=== PATIENT | female | born 1990 | race Caucasian/White ===

== ENCOUNTER → 2018-04-08 15:54 | Outpatient (CLI) | payer MEDICAID, SELFPAY ==
[2018-04-08 18:02] LABS: Cholesterol 166 mg/dL (200); High Density Lipoprotein 51 mg/dL; Triglycerides 109 mg/dL; Very Low Density Lipoprotein 22 mg/dL (5-40)
[2018-04-12 14:16] LABS: Lipoprotein A 121 nmol/L (<75)
== END ==
PROVIDERS: Family Provider Family Medicine; PCP Family Medicine; Visit Provider Family Medicine
DX: Z00.00 Encounter for general adult medical examination without abnormal findings (principal); Z82.49 Family history of ischemic heart disease and other diseases of the circulatory system; Z13.220 Encounter for screening for lipoid disorders
CPT/HCPCS: 36415; 80061; 83695

== ENCOUNTER → 2019-10-14 11:38 | Outpatient (CLI) | payer OTHER, MEDICAID, SELFPAY ==
[2018-04-30 08:54] VITALS: BMI 21.6
[2019-10-14 15:17] LABS: Absolute Lymphocyte Count 3.29 X10^3/uL (0.83-4.51); Absolute Neutrophil Count 7.1 X10^3/uL (2.0-7.7); Basophil# 0.09 X10^3/uL; Basophil% 0.8 % (0-1); Eosinophil# 0.27 X10^3/uL; Eosinophils% 2.4 % (0-5); Hemoglobin 13.2 g/dL (12.0-15.0); Lymphocyte # 3.29 X10^3/ul (4.0); Lymphocyte % 29.3 % (19-41); Mean Corp Hgb Conc 32.2 g/dL (32-36); Mean Corpuscular Hgb 31.5 pg (27.0-32.0); Mean Corpuscular Volume 97.9 fL (81-99); Mean Platelet Vol. 10.8 fl (6.2-12.0); Monocyte# 0.48 X10^3/uL; Monocyte% 4.3 % (0-10); NRBC Flagged by Analyzer 0 % (0-5); Neutrophil # 7.05 X10^3/uL (2.7-7.7); Neutrophil % 62.9 % (47-70); Platelet Count 314 K/mm3 (150-450); RBC Distribution Width CV 12.6 % (11.6-14.6); Red Blood Count 4.19 M/mm3 (4.2-5.4); White Blood Count 11.2 K/mm3 (4.4-11.0)
[2019-10-14 15:26] LABS: International Normalized Ratio 1.1; Partial Thromboplast Time 30.8 Seconds (24.1-36.2); Prothrombin Time (Protime)PT. 13.6 SECONDS (11.7-14.9)
[2019-10-14 16:13] LABS: ALB/GLOB Ratio 1.3 RATIO (0.9-2.4); AST(SGOT) 10 U/L (15-37); Alanine Aminotransfer ALT/SGPT 23 U/L (13-56); Albumin, Serum 3.9 g/dL (3.2-5.0); Alkaline Phosphatase 87 U/L (45-117); Anion Gap 6 (5-15); BUN 6 mg/dL (7-18); BUN/Creat Ratio 9.3 RATIO (10-20); Calcium,Total 8.8 mg/dL (8.5-10.1); Chloride 106 mmol/L (98-107); Cholesterol 206 mg/dL (200); Creatinine, Serum 0.65 mg/dL (0.55-1.02); EST Glomerular Filtration Rate 116 mL/min (>60); Est Glom Filt Rate - Afr Amer 140 mL/min (>60); Globulin 2.9 g/dL (2.2-4.2); Glucose 92 mg/dL (74-106); High Density Lipoprotein 51 mg/dL; Potassium 3.6 mmol/L (3.5-5.1); Protein, Total 6.8 g/dL (6.4-8.2); Sodium Level 139 mmol/L (136-145); Triglycerides 141 mg/dL; Very Low Density Lipoprotein 28 mg/dL (5-40)
[2019-10-17 11:33] LABS: CRP, High Sensitivity Cardiac < 2.90 mg/L
[2019-10-17 16:23] LABS: Lipoprotein A 105.6 nmol/L (<75.0)
== END ==
PROVIDERS: PCP Family Medicine; Visit Provider Family Medicine
DX: Z00.00 Encounter for general adult medical examination without abnormal findings (principal); E78.41 Elevated Lipoprotein(a); T14.8XXA Other injury of unspecified body region, initial encounter; Z82.49 Family history of ischemic heart disease and other diseases of the circulatory system
CPT/HCPCS: 36415; 80053; 80061; 83695; 85025; 85610; 85730; 86140; 86141

== ENCOUNTER → 2022-01-30 | Outpatient (CLI) | payer OTHER, MEDICAID, SELFPAY ==
[2022-01-30 18:38] LABS: Cholesterol 263 mg/dL (200); High Density Lipoprotein 55 mg/dL; Triglycerides 132 mg/dL; Very Low Density Lipoprotein 26 mg/dL (5-40)
== END | disposition home or self-care (01) ==
PROVIDERS: PCP Family Medicine; Visit Provider Family Medicine
DX: E78.41 Elevated Lipoprotein(a) (principal)
CPT/HCPCS: 36415; 80061

== ENCOUNTER → 2022-02-06 | Outpatient (CLI) | payer OTHER, MEDICAID, SELFPAY ==
[2022-02-06 12:31] LABS: Cholesterol 264 mg/dL (200); High Density Lipoprotein 54 mg/dL; Triglycerides 93 mg/dL; Very Low Density Lipoprotein 19 mg/dL (5-40)
== END | disposition home or self-care (01) ==
LOC: BFHLAB 09:56
PROVIDERS: PCP Family Medicine; Visit Provider Family Medicine
DX: E78.5 Hyperlipidemia, unspecified (principal)
CPT/HCPCS: 36415; 80061

== ENCOUNTER → 2022-03-31 | Outpatient (CLI) | payer OTHER, MEDICAID, SELFPAY ==
[2022-03-31 18:39] LABS: AST(SGOT) 18 U/L (15-37); Alanine Aminotransfer ALT/SGPT 40 U/L (13-56); Albumin, Serum 3.9 g/dL (3.2-5.0); Alkaline Phosphatase 71 U/L (45-117); Bilirubin, Direct 0.11 mg/dL (0.00-0.30); Cholesterol 156 mg/dL (200); Globulin 2.9 g/dL (2.2-4.2); High Density Lipoprotein 61 mg/dL; Protein, Total 6.8 g/dL (6.4-8.2); Triglycerides 106 mg/dL; Very Low Density Lipoprotein 21 mg/dL (5-40)
== END | disposition home or self-care (01) ==
LOC: BFHLAB 14:53
PROVIDERS: PCP Family Medicine; Visit Provider Family Medicine
DX: E78.5 Hyperlipidemia, unspecified (principal); Z51.81 Encounter for therapeutic drug level monitoring
CPT/HCPCS: 36415; 80061; 80076

== ENCOUNTER → 2022-09-08 | Outpatient (CLI) | payer MEDICAID, SELFPAY ==
[2022-09-08 18:07] LABS: Absolute Lymphocyte Count 3.74 X10^3/uL (0.83-4.51); Absolute Neutrophil Count 5.9 X10^3/uL (2.0-7.7); Basophil% 0.9 % (0-1); Eosinophil# 0.25 X10^3/uL; Eosinophils% 2.3 % (0-5); Hematocrit 40.1 % (37-47); Hemoglobin 13.4 g/dL (12.0-15.0); Lymphocyte # 3.74 X10^3/ul (0.83-4.51); Lymphocyte % 35.1 % (19-41); Mean Corp Hgb Conc 33.4 g/dL (32-36); Mean Corpuscular Hgb 32.1 pg (27.0-32.0); Mean Corpuscular Volume 96.2 fL (81-99); Mean Platelet Vol. 11.4 fl (6.2-12.0); Monocyte# 0.59 X10^3/uL; Monocyte% 5.5 % (0-10); NRBC Flagged by Analyzer 0 % (0-5); Neutrophil # 5.93 X10^3/uL (2.7-7.7); Neutrophil % 55.8 % (47-70); Platelet Count 273 K/mm3 (150-450); RBC Distribution Width CV 12.6 % (11.6-14.6); RBC Distribution Width SD 44.6 fl (35.1-43.9); Red Blood Count 4.17 M/mm3 (4.2-5.4); White Blood Count 10.7 K/mm3 (4.4-11.0)
[2022-09-08 18:25] LABS: Erythrocyte Sedimentation Rate 2 mm/hr (0-30)
[2022-09-08 19:03] LABS: ALB/GLOB Ratio 1.3 RATIO (0.9-2.4); AST(SGOT) 18 U/L (15-37); Alanine Aminotransfer ALT/SGPT 31 U/L (13-56); Albumin, Serum 3.7 g/dL (3.2-5.0); Alkaline Phosphatase 86 U/L (45-117); Anion Gap 6 (5-15); BUN 8 mg/dL (7-18); BUN/Creat Ratio 10.2 RATIO (10-20); CRP < 2.90 mg/L (0.0-3.0); Calcium,Total 9.2 mg/dL (8.5-10.1); Chloride 108 mmol/L (98-107); Creatinine, Serum 0.79 mg/dL (0.55-1.02); EST Glomerular Filtration Rate 90 mL/min (>60); Est Glom Filt Rate - Afr Amer 109 mL/min (>60); Globulin 2.9 g/dL (2.2-4.2); Glucose 81 mg/dL (74-106); Potassium 3.9 mmol/L (3.5-5.1); Protein, Total 6.6 g/dL (6.4-8.2); Sodium Level 139 mmol/L (136-145)
== END | disposition home or self-care (01) ==
LOC: BFHLAB 16:22
PROVIDERS: PCP Family Medicine; Referring Provider Family Medicine; Visit Provider Family Medicine
DX: K52.9 Noninfective gastroenteritis and colitis, unspecified (principal)
CPT/HCPCS: 36415; 80053; 85025; 85652; 86140

== ENCOUNTER 2023-01-09 07:25 | Day surgery (SDC) | payer MEDICAID, SELFPAY ==
--- NOTE | 2023-01-09 | COLBX_PTH ---
PATIENT: DOMINGA CROWELL LOC: EN U#:[id number] AGE/SX: 32/F ROOM: RE01/09/[address]: Dr. Laz Arellano MD : 1990 BED: DIS: 01/09/2023 SPEC #: [id number] RECD: 01/09/23 13:47 STATUS: ZARINA REEduarda #: [id number] JESSENIA: 01/09/23 00:[address]: Laz Arellano DEPT: SURGICAL PATHOLOGY RECD BY: Yinka Wallace ENTERED: 01/09/23 13:48 SP TYPE: COLON BX OTHR DR: Dr. Mariusz Winslow DO Tissues: COLON BIOPSY Procedures: Surgery Specimen Level IV HEADER OPERATION: Colonoscopy and biopsies PRE-OP DIAGNOSIS: Diarrhea TISSUE SUBMITTED: Random colonic biopsies for microscopic colitis MICROSCOPIC DIAGNOSIS Colon, random biopsy: No pathologic change. AM:bibiana 01/13/2023 MICROSCOPIC DESCRIPTION Slides are reviewed. GROSS DESCRIPTION Received in fixative is one container labeled with the patient's name and designated random colonic biopsy. The specimen consists of multiple irregular fragments of light rothman soft tissue that in aggregate measure 2.0 x 1.0 x 0.1 cm. The specimen is totally submitted in one cassette. / SJ:bibiana 01/09/2023 TC:5 CPT: 95695
[2023-01-09 07:45] VITALS: BP 109/48; PULSE 65; RESP 16; TEMP 36.6; O2SAT 97; BMI 24.3
[2023-01-09] MEDS: Lactated Ringers 1,000 ML 15 ML IV (08:00)
--- NOTE | 2023-01-09 08:12 | PCM.HP.BLA ---
History and Physical Date of Admission: 01/09/23 Intake Vital Signs 12/17/2313:44 Height 5 ft 3 in Weight: 136 lb 8 oz BMI 24.1 BP 111/75 Blood Pressure Location Rt brachial Position Sitting Respiration 16 Pulse 72 Pulse Source NIBP Temp 97.6 F L Temp Source Temporal Pulse Oximetry (%) 97 Oxygen Delivery Method room air Intake Visit Reasons: CHANGES IN BOWEL HABITS Chief Complaint: change in bowel habits Track Leader Required: No Is patient in pain?: No Allergies No Known Allergies Allergy (Verified 12/17/22 14:44) Medications vaicrxxmrt-wplhtlywdbdbg-pxpeoubk 50 mg-325 mg-40 mg tablet 1 tab PO Q4H PRN PRN Headache 10/25/19 [History Confirmed 12/17/22] fluoxetine 20 mg capsule 20 mg PO DAILY 10/25/19 [History Confirmed 12/17/22] sumatriptan succinate 100 mg tablet 100 mg PO PRN PRN Headache 10/25/19 [History Confirmed 12/17/22] rosuvastatin 10 mg tablet mg PO 12/17/22 [History Confirmed 12/17/22] vitamin E (dl, acetate) 180 mg (400 unit) capsule 180 mg PO DAILY 12/17/22 [History Confirmed 12/17/22] Is last menstrual period known: No Post menopausal: No Patient : No PFSH Medical History Anxiety and depression Bilateral knee pain Elevated lipoprotein(a) Migraines Severe headache Surgical History History of History of hysterectomy History of tubal ligation Family History Grandmother Pancreatic cancerOther Blood clots Heart disease High cholesterol Hypertension Myocardial infarction Social History (Updated 04/30/18 @ 16:34 by AARON Britt) Smoking Status: Light Smoker (<10/day) alcohol intake: current HPI HPI HPI: Patient is a 32-year-old female here for diarrhea. The patient reports that a few weeks ago she was having bright red blood in her stool but this resolved. She said now she has been having no blood but she is only having liquid stool. She does not describe any abdominal pain. She does not have normal bowel movements. She does not describe that they are loose but more like pure liquid. ROS General General: No weight change, appetite, fatigue, colon cancer, breast cancer or weakness HEENT HEENT: No difficulty swallowing, eye injury, eye surgery, swollen glands or hoarseness Endo Endocrine: No thyroid disease, diabetes mellitus, thyroid cancer, Hair loss, heat intolerance or cold intolerance Musc Musculoskeletal: No back problems, arthritis, rheumatoid arthritis, gout or joint pain Cardio Cardiovascular: No murmur, pacemaker, heart disease, atrial fibrillation, high blood pressure, heart attack, heart stent, palpitations, shortness of breat with exertion or chest pain Psych Psychiatric: Yes depression and anxiety; No hearing voices Resp Respiratory: No shortness of breath, No sleep apnea, No cough, No COPD, No asthma, No emphysema and No wheezing Gastro Gastrointestinal: No abdominal pain, No nausea or vomiting, Yes diarrhea, No constipation, Yes blood in stool, No acid reflux, No hemorrhoids, No ulcers, No gallbladder problem and No black,tarry stools Claudy Hematologic: No blood thinners, No blood disorders, No bleeding, No anemia and No blood clots Neuro Neurologic: No weakness Exam Const General: cooperative Orientation: alert and oriented x3 HENMT Head: normal to inspection Neck Neck: normal visual inspection and full ROM Chest Chest palpation & inspection: normal inspection of the chest Resp Effort & Inspection: normal respiratory effort Auscultation: clear to auscultation bilaterally Cardio Rate: regular rate Rhythm: regular rhythm GI Inspection: non-distended Palpation: soft and nontender Skin General: no rashes or lesions noted Neuro General: patient alert and patient oriented x3 Extrem General: full ROM Psych Appearance: grossly normal Mental Status: mental status grossly normal Assessment and Plan Assessment and Plan (1) Diarrhea: Status: Acute Qualifiers: Diarrhea type: unspecified type Qualified Code(s): R19.7 - Diarrhea, unspecified Plan: The patient has been having diarrhea for a few weeks. I will first send her for stool study and then I will perform colonoscopy to take random biopsies to check for colitis. I explained endoscopy in detail to the patient. I explained the risks including but not limited to stroke or heart attack with anesthesia, perforation of the GI tract, bleeding, infection. I explained that any of these could necessitate further emergency surgery. The patient understands and all questions were answered sufficiently. The patient wishes to proceed with procedure. Laz Arellano MD Pager: [facility] [address] [place] [address], [address] [place] [address] Office: I have examined the patient and the H&P has been reviewed. There are no clinical changes since date of exam.
--- NOTE | 2023-01-09 09:01 | OP.CCLET_ITS ---
01/09/2023 Mariusz Winslow [address] [place] [address] Re : Colonoscopy procedure for Fartun Bowman Dear Dr. Winslow This procedure was performed on Monday, January 09, 2023. My impressions and recommendations are as follows: Impressions : - The entire examined colon is normal on direct and retroflexion views. - Biopsies were taken with a cold forceps from the entire colon for evaluation of microscopic colitis. Recommendations : - Discharge patient to home. - Resume previous diet. - Continue present medications. - Await pathology results. - Repeat colonoscopy at age 46 for screening purposes. My findings are described in the full procedure note, which is enclosed. If I can be of further assistance, please feel free to contact me at Doctor phone number(s): , Work: . Sincerely, Laz Arellano MD 01/09/2023 9:01:04 AM This report has been signed electronically.
--- NOTE | 2023-01-09 09:01 | OP.COLON_ITS ---
Patient Name: Fartun Bowman Procedure Date: 01/09/2023 8:36 AM Date of : 1990 Age: 32 Procedure: Colonoscopy Indications: Chronic diarrhea Providers: Laz Arellano MD Medicines: Monitored Anesthesia Care Patient Profile: This is a 32 year old female. Refer to note in patient chart for documentation of history and physical. Last Colonoscopy: none. The patient's first colonoscopy is today. Complications: No immediate complications. Estimated blood loss: Minimal. Procedure: Pre-Anesthesia Assessment: - Prior to the procedure, a History and Physical was performed, and patient medications and allergies were reviewed. The patient's tolerance of previous anesthesia was also reviewed. The risks and benefits of the procedure and the sedation options and risks were discussed with the patient. All questions were answered, and informed consent was obtained. Prior Anticoagulants: The patient has taken no anticoagulant or antiplatelet agents. After reviewing the risks and benefits, the patient was deemed in satisfactory condition to undergo the procedure. After I obtained informed consent, the scope was passed under direct vision. Throughout the procedure, the patient's blood pressure, pulse, and oxygen saturations were monitored continuously. The pediatric colonoscope was introduced through the anus and advanced to the cecum, identified by appendiceal orifice and ileocecal valve. The colonoscopy was performed without difficulty. The patient tolerated the procedure well. The quality of the bowel preparation was good. The ileocecal valve, appendiceal orifice, and rectum were photographed. Scope In: 8:41:51 AM Scope Withdrawal Time 0 hours 4 minutes 32 seconds Scope Out: 8:52:39 AM Total Procedure Duration Time 0 hours 10 minutes 48 seconds Findings: The entire examined colon appeared normal on direct and retroflexion views. Biopsies for histology were taken with a cold forceps from the entire colon for evaluation of microscopic colitis. Impression: - The entire examined colon is normal on direct and retroflexion views. - Biopsies were taken with a cold forceps from the entire colon for evaluation of microscopic colitis. Recommendation: - Discharge patient to home. - Resume previous diet. - Continue present medications. - Await pathology results. - Repeat colonoscopy at age 46 for screening purposes. Procedure Code(s): --- Professional --- 36301, Colonoscopy, flexible; with biopsy, single or multiple Diagnosis Code(s): --- Professional --- K52.9, Noninfective gastroenteritis and colitis, unspecified CPT copyright 2021 [employer]. All rights reserved. The codes documented in this report are preliminary and upon loading rack supervisor review may be revised to meet current compliance requirements. Laz Arellano MD 01/09/2023 9:01:04 AM This report has been signed electronically. Number of Addenda: 0 Note Initiated On: 01/09/2023 8:36 AM
[2023-01-09 09:03] VITALS: BP 103/58; BP 109/48; PULSE 65; RESP 18; TEMP 36.4; O2SAT 100
[2023-01-09 09:05] VITALS: BP 102/64; BP 109/48; PULSE 66; RESP 12; O2SAT 100
[2023-01-09 09:09] VITALS: BP 100/62; BP 109/48; PULSE 58; RESP 12; O2SAT 100
[2023-01-09 09:11] VITALS: BP 101/66; BP 109/48; PULSE 68; RESP 12; TEMP 37.2
[2023-01-09 09:28] VITALS: BP 109/48
== END 2023-01-09 09:35 | disposition home or self-care (01) ==
LOC: EN 07:25 → AC 07:27
PROVIDERS: PCP Family Medicine; Referring Provider Family Medicine; Visit Provider Surgery
PROC: 0DJD8ZZ Inspection of Lower Intestinal Tract, Via Natural or Artificial Opening Endoscopic (ICD-10-PCS; CPT 45378; principal; 2023-01-09 08:25)
DX: K52.9 Noninfective gastroenteritis and colitis, unspecified (principal); F17.200 Nicotine dependence, unspecified, uncomplicated; F41.9 Anxiety disorder, unspecified; F32.A Depression, unspecified; E78.00 Pure hypercholesterolemia, unspecified; Z79.899 Other long term (current) drug therapy
CPT/HCPCS: 45380; 88305; J7120; J2405

== ENCOUNTER → 2023-02-05 | Outpatient (CLI) | payer MEDICAID, SELFPAY ==
[2023-02-05 17:38] LABS: Color, Urine Yellow (Yellow); Glucose, Dipstick Normal (Normal); Ketone-Dipstick Negative (Negative); Leukocyte Esterase-Dipstick Negative /ul (Negative); Nitrite-Dipstick Negative (Negative); Occult Blood-Urine Negative /ul (Negative); Protein-Dipstick Negative (Negative); Specific Gravity, Urine 1.015 (1.002-1.030); Urine Bilirubin Dipstick Negative (Negative); Urine Clarity Clear (Clear); Urine Urobilinogen Normal (Normal)
[2023-02-05 17:39] LABS: Absolute Lymphocyte Count 2.86 X10^3/uL (0.83-4.51); Absolute Neutrophil Count 6.2 X10^3/uL (2.0-7.7); Basophil# 0.09 X10^3/uL; Basophil% 0.9 % (0-1); Eosinophil# 0.26 X10^3/uL; Eosinophils% 2.6 % (0-5); Hematocrit 43.3 % (37-47); Hemoglobin 14.2 g/dL (12.0-15.0); Lymphocyte # 2.86 X10^3/ul (0.83-4.51); Lymphocyte % 28.8 % (19-41); Mean Corp Hgb Conc 32.8 g/dL (32-36); Mean Corpuscular Volume 94.5 fL (81-99); Mean Platelet Vol. 10.7 fl (6.2-12.0); Monocyte# 0.45 X10^3/uL; Monocyte% 4.5 % (0-10); NRBC Flagged by Analyzer 0 % (0-5); Neutrophil # 6.23 X10^3/uL (2.7-7.7); Neutrophil % 62.8 % (47-70); Platelet Count 303 K/mm3 (150-450); RBC Distribution Width CV 12.4 % (11.6-14.6); RBC Distribution Width SD 43.1 fl (35.1-43.9); Red Blood Count 4.58 M/mm3 (4.2-5.4); White Blood Count 9.9 K/mm3 (4.4-11.0)
[2023-02-05 18:15] LABS: ALB/GLOB Ratio 1.3 RATIO (0.9-2.4); AST(SGOT) 15 U/L (15-37); Alanine Aminotransfer ALT/SGPT 25 U/L (13-56); Alkaline Phosphatase 85 U/L (45-117); Anion Gap 5 (5-15); BUN 8 mg/dL (7-18); BUN/Creat Ratio 11.5 RATIO (10-20); Calcium,Total 8.9 mg/dL (8.5-10.1); Chloride 106 mmol/L (98-107); EST Glomerular Filtration Rate 104 mL/min (>60); Est Glom Filt Rate - Afr Amer 126 mL/min (>60); Glucose 84 mg/dL (74-106); Potassium 3.8 mmol/L (3.5-5.1); Sodium Level 137 mmol/L (136-145)
== END | disposition home or self-care (01) ==
LOC: BFHLAB 16:06
PROVIDERS: PCP Family Medicine; Visit Provider Family Medicine
DX: R10.11 Right upper quadrant pain (principal); R35.0 Frequency of micturition
CPT/HCPCS: 36415; 80053; 81002; 85025

== ENCOUNTER → 2023-03-10 | Outpatient (CLI) | payer MEDICAID, SELFPAY ==
[2023-03-10 11:46] LABS: ALB/GLOB Ratio 1.3 RATIO (0.9-2.4); AST(SGOT) 23 U/L (15-37); Alanine Aminotransfer ALT/SGPT 37 U/L (13-56); Albumin, Serum 3.9 g/dL (3.2-5.0); Alkaline Phosphatase 89 U/L (45-117); Anion Gap 3 (5-15); BUN 9 mg/dL (7-18); BUN/Creat Ratio 10.8 RATIO (10-20); Calcium,Total 9.5 mg/dL (8.5-10.1); Chloride 109 mmol/L (98-107); Creatinine, Serum 0.83 mg/dL (0.55-1.02); EST Glomerular Filtration Rate 85 mL/min (>60); Est Glom Filt Rate - Afr Amer 103 mL/min (>60); Globulin 3.1 g/dL (2.2-4.2); Glucose 97 mg/dL (74-106); Potassium 4.1 mmol/L (3.5-5.1); Sodium Level 139 mmol/L (136-145); Thyroid Stim Hormone (TSH) 1.58 uIU/mL (0.358-3.74)
== END | disposition home or self-care (01) ==
LOC: LAB 10:05
PROVIDERS: PCP Family Medicine; Referring Provider Internal Medicine Cardiovascular Disease; Visit Provider Internal Medicine Cardiovascular Disease
DX: R00.2 Palpitations (principal); R00.0 Tachycardia, unspecified
CPT/HCPCS: 36415; 80053; 84443

== ENCOUNTER → 2023-04-01 | Outpatient (CLI) | payer MEDICAID, SELFPAY ==
--- NOTE | 2023-04-01 08:05 | ECHOD_ITS ---
Reason For Study: PALPITATIONS Procedure This was a 2D Doppler, Color Flow transthoracic echocardiogram. Exam performed in department. Left Ventricle Normal LV size. Left ventricular systolic function is normal. The estimated ejection fraction is 60 %. Normal diastololic function. Right Ventricle Normal RV size. Normal systolic function. Atria The left and right atria are normal. Mitral Valve The mitral valve is structurally normal. No prolapse or stenosis seen. Trivial mitral valve insufficiency. Tricuspid Valve Normal tricuspid valve. Trivial tricuspid valve insufficiency. Right ventricular systolic pressure estimated to be 23 mmHg. Aortic Valve The aortic valve is not well visualized in the short axis view. There is no aortic stenosis. No aortic valve insufficiency. Pulmonic Valve Normal pulmonic valve. Trivial pulmonic valve insufficiency. Great Vessels Normal aortic root. Pericardium/Pleural No pericardial effusion. MMode/2D Measurements & Calculations LVIDd: 5.0 cm IVSd: 0.73 cm Ao root diam: 2.6 cm LVIDs: 3.2 cm LVPWd: 0.78 cm RVDd: 3.3 cm FS: 34.7 % LAV(MOD-bp): 30.5 ml LVAd ap4: 24.9 cm2 SV(MOD-sp4): 40.9 ml LAV(MOD-bp) Indexed: 18.3 ml/m2 LVLd ap4: 6.5 cm LAV(MOD-sp2): 28.8 ml EDV(MOD-sp4): 79.5 ml LAV(MOD-sp4): 30.9 ml EDV(sp4-el): 81.0 ml LVAs ap4: 15.4 cm2 LVLs ap4: 5.2 cm ESV(MOD-sp4): 38.6 ml ESV(sp4-el): 39.1 ml EF(MOD-sp4): 51.4 % EF(sp4-el): 51.7 % SV(sp4-el): 41.9 ml LA A4 area: 13.1 cm2 LA dimension(2D): 3.4 cm RA A4 area: 12.9 cm2 TAPSE: 2.2 cm Time Measurements MV dec time: 0.14 sec Doppler Measurements & Calculations MV E max eloy: 86.7 cm/sec Lat Peak E' Eloy: 14.9 cm/sec Med Peak E' Eloy: 12.8 cm/sec MV A max eloy: 51.6 cm/sec E/E' lat: 5.8 E/E' med: 6.8 MV E/A: 1.7 MV V2 max: 115.9 cm/sec MV P1/2t max eloy: 118.2 cm/sec Ao V2 max: 125.2 cm/sec MV max P.4 mmHg MV P1/2t: 54.2 msec Ao max P.3 mmHg MV V2 mean: 55.2 cm/sec Ao V2 mean: 88.6 cm/sec MV mean P.5 mmHg MV dec slope: 638.4 cm/sec2 Ao mean P.6 mmHg MV V2 VTI: 23.0 cm MVA(P1/2t): 4.1 cm2 Ao V2 VTI: 27.1 cm AV (velocity ratio): 0.77 LV V1 max: 99.0 cm/sec PA V2 max: 88.1 cm/sec TR max eloy: 222.5 cm/sec LV V1 max P.9 mmHg PA V2 mean: 65.0 cm/sec TR max P.8 mmHg LV V1 mean P.3 mmHg LV V1 mean: 73.1 cm/sec LV V1 VTI: 21.0 cm ECHO/Echo Complete Interpretation Summary The estimated ejection fraction is 60 %. Normal diastololic function. Ordering Physician: Myranda Omalley Referring Physician: Mariusz Winslow Performed By: Kasia Henry RDCS, RVT
== END | disposition home or self-care (01) ==
LOC: CVS 08:03
PROVIDERS: PCP Family Medicine; Referring Provider Internal Medicine Cardiovascular Disease; Visit Provider Internal Medicine Cardiovascular Disease
DX: R00.2 Palpitations (principal); R00.0 Tachycardia, unspecified
CPT/HCPCS: 93306

== ENCOUNTER → 2023-07-08 | Outpatient (CLI) | payer MEDICAID, SELFPAY ==
[2023-07-08 14:04] LABS: Estradiol 78.3 pg/mL; Follicle Stimulating Hormone 3.1 mIU/mL; Thyroid Stim Hormone (TSH) 1.02 uIU/mL (0.358-3.74)
[2023-07-09 04:07] LABS: PROGESTERONE 16.5 ng/mL (.)
== END | disposition home or self-care (01) ==
LOC: BFHLAB 08:46
PROVIDERS: PCP Family Medicine; Referring Provider Family Medicine; Visit Provider Family Medicine
DX: E34.9 Endocrine disorder, unspecified (principal); R23.2 Flushing; R61 Generalized hyperhidrosis
CPT/HCPCS: 36415; 82627; 82670; 83001; 83002; 84144; 84403; 84443; 82626

== ENCOUNTER → 2023-11-13 | Outpatient (CLI) | payer MEDICAID, SELFPAY ==
[2023-11-13 15:27] LABS: Absolute Lymphocyte Count 3.33 X10^3/uL (0.83-4.51); Absolute Neutrophil Count 8.8 X10^3/uL (2.0-7.7); Basophil# 0.08 X10^3/uL; Basophil% 0.6 % (0-1); Eosinophil# 0.15 X10^3/uL; Eosinophils% 1.2 % (0-5); Hematocrit 43.4 % (37-47); Hemoglobin 14.3 g/dL (12.0-15.0); Lymphocyte # 3.33 X10^3/ul (0.83-4.51); Lymphocyte % 25.7 % (19-41); Mean Corp Hgb Conc 32.9 g/dL (32-36); Mean Corpuscular Hgb 31.2 pg (27.0-32.0); Mean Corpuscular Volume 94.8 fL (81-99); Mean Platelet Vol. 10.8 fl (6.2-12.0); Monocyte# 0.51 X10^3/uL; Monocyte% 3.9 % (0-10); NRBC Flagged by Analyzer 0 % (0-5); Neutrophil # 8.83 X10^3/uL (2.7-7.7); Neutrophil % 68.1 % (47-70); Platelet Count 307 K/mm3 (150-450); RBC Distribution Width CV 13.1 % (11.6-14.6); RBC Distribution Width SD 45.5 fl (35.1-43.9); Red Blood Count 4.58 M/mm3 (4.2-5.4)
[2023-11-13 16:20] LABS: ALB/GLOB Ratio 1.2 RATIO (0.9-2.4); AST(SGOT) 7 U/L (15-37); Alanine Aminotransfer ALT/SGPT 15 U/L (13-56); Albumin, Serum 3.8 g/dL (3.2-5.0); Alkaline Phosphatase 90 U/L (45-117); Anion Gap 5 (5-15); BUN 11 mg/dL (7-18); BUN/Creat Ratio 15.3 RATIO (10-20); Calcium,Total 9.2 mg/dL (8.5-10.1); Chloride 104 mmol/L (98-107); Creatinine, Serum 0.72 mg/dL (0.55-1.02); EST Glomerular Filtration Rate 100 mL/min (>60); Est Glom Filt Rate - Afr Amer 120 mL/min (>60); Globulin 3.2 g/dL (2.2-4.2); Glucose 100 mg/dL (74-106); Lipase 27 U/L (13-75); Potassium 4.3 mmol/L (3.5-5.1); Sodium Level 134 mmol/L (136-145)
== END | disposition home or self-care (01) ==
LOC: BFHLAB 13:49
PROVIDERS: PCP Family Medicine; Referring Provider Family Medicine; Visit Provider Family Medicine
DX: R10.11 Right upper quadrant pain (principal)
CPT/HCPCS: 36415; 80053; 83690; 85025

== ENCOUNTER → 2023-11-26 | Outpatient (CLI) | payer MEDICAID, SELFPAY ==
--- NOTE | 2023-11-26 09:20 | US_ITS ---
STUDY: ABDOMINAL ULTRASOUND - RIGHT UPPER QUADRANT REASON FOR VISIT: Female, 33 years old PAIN/POST-PRANDIAL TECHNIQUE: Ultrasound evaluation of the right upper quadrant was performed with real-time and static nelson-scale imaging. TECHNICAL QUALITY: Adequate. COMPARISON: None. FINDINGS: Liver: The liver measures 16.6 cm. There is normal echogenicity of the liver. The bile ducts are within normal limits. There is hepatic color flow. The direction of portal flow is hepatopetal. There is no demonstrated mass lesion. Gallbladder: Normal distended gallbladder. The gallbladder wall measures 1.5 mm. There is a negative sonographic Conn''s sign. There is no pericholecystic fluid. There are no gallstones. Multiple small polyps are seen adherent to the gallbladder wall. The largest measures 4 mm x 4 mm x 3 mm. Sludge is seen within the gallbladder lumen. Common Bile Duct (C.B.D.): The common bile duct measures 2.9 mm. Pancreas: Normal size of the head, body and tail of the pancreas. There is normal echogenicity of the pancreas. There is no demonstrated pancreatic mass or cyst. Right Kidney: Normal size of the right kidney. The right kidney measures 10.8 cm x 5.4 cm x 5 cm. Normal renal cortex. The right cortex measures 1 cm. There is no demonstrated renal mass or cyst. There is no right hydronephrosis. US/Abdomen Limited IMPRESSION: Small gallbladder polyps. Sludge is seen within the gallbladder lumen. Electronically Signed: West Burns MD at 11:15 EDT ,
== END | disposition home or self-care (01) ==
LOC: US 09:17
PROVIDERS: PCP Family Medicine; Referring Provider Family Medicine; Visit Provider Family Medicine
DX: R10.11 Right upper quadrant pain (principal)
CPT/HCPCS: 76705

== ENCOUNTER 2024-01-12 09:57 | Day surgery (SDC) | payer OTHER, SELFPAY ==
[2024-01-12] VITALS (12 sets, daily range): BP systolic 95–135; BP diastolic 53–83; PULSE 68–93; RESP 16; TEMP 36.1–36.9; O2SAT 94–100; BMI 21.5
--- NOTE | 2024-01-12 10:17 | EKG12_ITS ---
Test Reason : PRE OP Blood Pressure : */* mmHG Vent. Rate : 71 BPM Atrial Rate : 71 BPM P-R Int : 142 ms QRS Dur : 74 ms QT Int : 382 ms P-R-T Axes : 9 85 38 degrees QTcB Int : 415 ms Normal sinus rhythm with sinus arrhythmia Normal ECG No previous ECGs available Confirmed by JEFF QUINONES, AYAN ([id number]), publication editor SRINIVAS WAGNER ([id number]) on 01/13/2024 2:15:33 PM Referred By: Laz Arellano Confirmed By: AYAN AGUILAR MD
--- NOTE | 2024-01-12 10:31 | PCM.HP.BLA ---
History and Physical Intake Vital Signs 03/10/2408:19 12/07/2407:15 Height 5 ft 3 in 5 ft 3 in Weight: 128 lb BMI 22.6 BP 113/69 Blood Pressure Location Rt brachial Position Sitting Respiration 17 Pulse 87 Pulse Source Monitor Pulse Oximetry (%) 99 Oxygen Delivery Method room air Intake Visit Reasons: GALLBLADDER Chief Complaint: gallbladder Is patient in pain?: Yes Allergies Sulfa (Sulfonamide Antibiotics) Allergy (Intermediate, Verified 12/07/23 08:18) Nausea/Vom/Diarrheatramadol (From Ultram) Allergy (Intermediate, Verified 12/07/23 08:18) Nausea/Vom/Diarrhea Medications ?Medication ?Instructions ?Recorded ?Confirmed ?Type rosuvastatin 10 mg tablet 10 mg PO DAILY 12/17/22 12/07/23 History vitamin E (dl, acetate) 180 mg 200 mg PO DAILY 12/17/22 12/07/23 History (400 unit) capsule buspirone 7.5 mg tablet 7.5 mg PO BID 03/10/23 12/07/23 History oyebwnxtts-uaviiwvfcuwen-vxsrlpih 1 tab PO Q4H PRN PRN Headache 03/10/23 12/07/23 History 50 mg-325 mg-40 mg tablet fluoxetine 40 mg capsule 40 mg PO DAILY 03/10/23 12/07/23 History omeprazole 20 mg tablet,delayed 20 mg PO QDAY #30 tabs 12/07/23 12/07/23 Rx release sucralfate 1 gram tablet (Carafate) 1 g PO QACHS 2 weeks #56 tabs 12/07/23 12/07/23 Rx PFSH Medical History (Updated 12/07/23 @ 08:15 by Edel Chakraborty) Palpitations Tachycardia ADHD (attention deficit hyperactivity disorder) evaluation Wears partial dentures Wears contact lenses Post-menopausal Depression Anxiety High cholesterol Smoker History of echocardiogram Bilateral knee pain Anxiety and depression Elevated lipoprotein(a) Migraines Severe headache Surgical History Hx of surgical procedure History of tonsillectomy and adenoidectomy History of History of hysterectomy History of tubal ligation Family History Grandmother Pancreatic cancerOther Blood clots Heart disease High cholesterol Hypertension Myocardial infarction Social History alcohol intake: never substance use type: does not use caffeine: Yes Type: coffee Number of servings: 5 HPI HPI HPI: Patient is a 33-year-old female here with abdominal pain. She reports the pain is epigastric. Now it is more constant. She denies nausea or vomiting. She says that sometimes it happens with food sometimes it happens without. ROS General General: Yes weight change and fatigue; No appetite, colon cancer, breast cancer or weakness HEENT HEENT: No difficulty swallowing, eye injury, eye surgery, swollen glands or hoarseness Endo Endocrine: No thyroid disease, diabetes mellitus, thyroid cancer, Hair loss, heat intolerance or cold intolerance Skin Skin: No rash or changing moles Musc Musculoskeletal: No back problems, arthritis, rheumatoid arthritis, gout or joint pain Cardio Cardiovascular: No murmur, pacemaker, heart disease, atrial fibrillation, high blood pressure, heart attack, heart stent, palpitations, shortness of breat with exertion or chest pain Psych Psychiatric: Yes depression and anxiety; No hearing voices Resp Respiratory: No shortness of breath, No sleep apnea, No cough, No COPD, No asthma, No emphysema and No wheezing Gastro Gastrointestinal: Yes abdominal pain, Yes nausea or vomiting, Yes diarrhea, Yes constipation, No blood in stool, No acid reflux, No hemorrhoids, No ulcers, Yes gallbladder problem and No black,tarry stools Claudy Hematologic: No blood thinners, No blood disorders, No bleeding, No anemia and No blood clots Neuro Neurologic: No system reviewed and no additional complaints, except as documented, No as per HPI, No abnormal gait, No abnormal hearing, No abnormal movements, No abnormal speech, No behavioral changes, No burning sensations, No confusion, No convulsions, No disequilibrium, No dizziness, No localized weakness, No frequent falls, No headache(s), No lack of coordination, No loss of vision, No memory loss, No numbness, No other visual disturbances, No radicular pain, No restless legs, No sensory deficit, No syncope, No tingling, No tremor(s), No weakness and No other Exam Const General: cooperative Orientation: alert and oriented x3 HENMT Head: normal to inspection Neck Neck: normal visual inspection and full ROM Chest Chest palpation & inspection: normal inspection of the chest Resp Effort & Inspection: normal respiratory effort Auscultation: clear to auscultation bilaterally Cardio Rate: regular rate Rhythm: regular rhythm GI Inspection: non-distended Palpation: soft and nontender Skin General: no rashes or lesions noted Neuro General: patient alert and patient oriented x3 Extrem General: full ROM Psych Appearance: grossly normal Mental Status: mental status grossly normal Assessment and Plan Assessment and Plan (1) Abdominal pain: Status: Acute Plan: The patient is having abdominal pain in the epigastric region. She had an ultrasound of the gallbladder that only showed some small polyps. I do not believe that this is the reason for her pain. I believe this is more likely peptic ulcer disease. I will start her on Carafate and pantoprazole. I will have her come back in 1 month to see if she is having improvement. If she is not having any improvement I will plan for laparoscopic cholecystectomy but if she is having improvement we will continue medications. Laz Arellano MD Pager: [facility] [address] [place] [address] Office: Patient did not respond to PPI and Carafate and she would like gallbladder removed. We discussed this in the office in detail. I discussed the procedure in detail with the patient. I discussed the risks, benefits, and alternatives of the procedure. I discussed the risks including but not limited to bleeding, infection, injury to surrounding organs such as the liver, bile duct, bowels. I did discuss the possibility of having to convert to an open procedure as well as the possibility that if any injuries occurred this may necessitate further surgery at a tertiary care center. Laz Arellano MD Pager: [facility] [address] [place] [address], [address] [phone] Office:
[2024-01-12] MEDS: Lactated Ringers 1,000 ML 15 ML IV (10:35)
--- NOTE | 2024-01-12 10:57 | PCM.PRE.AN2 ---
ASA Classification* ASA Classification ASA Classification: 2 Assessment & Plan Anesthesia* Anesthesia Assessment Anesthesia Assessment: Discussed sedation and/or anesthesia options, risks, benefits, and alternatives with patient/parents/legal guardian/POA. Questions invited. The patient/parents/legal guardian/POA seems to understand and agrees to proceed with anesthesia plan. Reviewed the physical assessment, medical history, allergy history and patient home medications list prior to surgery/procedure/anesthetic and documented any changes. Performed airway and anesthesia risk assessments. Anesthesia Type Anesthesia Type: General History Source History Obtained from:: Patient and Chart Anesthesia Focused Assessment* Temperature: 98.4 F Pulse Rate: 77 Blood Pressure: 95/53 Respiratory Rate: 16 Pulse Ox: 100 Oxygen Delivery Method: Room Air Airway Assessment Mouth opens: >3 cm Mallampati Score: III Teeth Condition: Partial (Patient has upper and lower partials.) Neck Range of motion (ROM): Full ROM Focused Labs Anesthesia Preop lab: CBC WBC 13.0 K/mm3 (4.4-11.0) H 11/13/23 13:49 RBC 4.58 M/mm3 (4.2-5.4) 11/13/23 13:49 Hgb 14.3 g/dL (12.0-15.0) 11/13/23 13:49 Hct 43.4 % (37-47) 11/13/23 13:49 Plt Count 307 K/mm3 (150-450) 11/13/23 13:49 CHEMISTRY Potassium 4.3 mmol/L (3.5-5.1) 11/13/23 13:49 Sodium 134 mmol/L (136-145) L 11/13/23 13:49 BUN 11 mg/dL (7-18) 11/13/23 13:49 Creatinine 0.72 mg/dL (0.55-1.02) 11/13/23 13:49 Glucose 100 mg/dL (74-106) 11/13/23 13:49 TSH 1.02 uIU/mL (0.358-3.74) 07/08/23 08:47 COAG PT 13.6 SECONDS (11.7-14.9) 10/14/19 11:42 Pre-Assessment Diagnosis/Proposed Procedure Planned Operative Procedure(s): LAP CHOLY WITH GRAMS Anesthesia History 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 When Was Last Pacemaker Check QUESTION #4 FULL TEXT: You/Your Family Experience fever (hyperthermia) with Anesthesia Last Oral Intake Last Oral intake: Last Oral Intake NPO since 20:30 01/12/24 10:35 Meds taken in AM with sips of No 01/12/24 10:35 water? 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 Female Yes 12/30/23 14:36 HX of Motion Sickness No 12/30/23 14:36 HX of N/V After Surgery No 12/30/23 14:36 Non-Smoker No 12/30/23 14:36 Duration of Surgery greater No 12/30/23 14:36 than 60 minutes Number of Risk Factors 1 12/30/23 14:36 PONV Score Low Risk 12/30/23 14:36 Height & Weight Height & Weight: Anesthesia: Height & Weight Height 5 ft 3 in 01/12/24 10:35 Weight: 55.2 kg 01/12/24 10:35 Body Mass Index (BMI) 21.5 01/12/24 10:35 Respiratory Assessment Respiratory Assessment - cylinder die machine operator: Respiratory Tract Infection Hx - cylinder die machine operator Hx Respiratory Tract Infection No 12/30/23 14:36 STOP Sleep Apnea STOP Sleep Apnea - cylinder die machine operator: STOP Sleep Apnea - cylinder die machine operator Hx Hypertension No 12/30/23 14:36 Hx Sleep Apnea No 12/30/23 14:36 CPAP BIPAP Do you snore loudly (louder No 12/30/23 14:36 than talking or can be heard Do you often feel tired/ No 12/30/23 14:36 fatigued/ sleepy during daytime? Has anyone observed you stop No 12/30/23 14:36 breathing during sleep? STOP Results Negative 12/30/23 14:36 QUESTION #5 FULL TEXT : Do you snore loudly (louder than talking or can be heard through closed doors)? 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 Specify any problems Hx of Preganancy in last 3 No 12/30/23 14:36 Months Nurse Filling Out Transfusion DSCHRIBER 12/30/23 14:36 & Questions: Date: 12/30/23 12/30/23 14:36 Time: 14:38 12/30/23 14:36 Patient unable to answer at this time (ie. confused, unrespo /Reproduction History /Reproductive History - cylinder die machine operator: /Reproductive Hx- cylinder die machine operator Hx Now No 12/30/23 14:36 Gestational Age (in weeks): EDC: Hx Hx Para Hx Section SAB No 12/30/23 14:36 Active Medications Active Medications: Current Medications Generic Name Dose Route Start Last Admin Trade Name Freq PRN Reason Stop Dose Admin Cefotetan Disodium 2 gm/ 100 mls @ 200 mls/hr 01/12/24 11:30 Sodium Chloride IV 01/12/24 11:59 PREOP ONE Lactated Ringer's 1,000 mls @ 15 mls/hr 01/12/24 10:15 01/12/24 10:35 IV 01/17/24 23:34 15 mls/hr .Q48H SANJANA Administration Protocol PFSH Medical History Cardiology follow-up encounter Palpitations Tachycardia ADHD (attention deficit hyperactivity disorder) evaluation Wears partial dentures Wears contact lenses Post-menopausal Depression Anxiety High cholesterol Smoker History of echocardiogram Bilateral knee pain Elevated lipoprotein(a) Migraines Home Medications ?Medication ?Instructions ?Recorded ?Last Taken ?Type rosuvastatin 10 mg tablet 10 mg PO DAILY 12/17/22 01/10/24 History vitamin E (dl, acetate) 180 mg 200 mg PO DAILY 12/17/22 Unknown History (400 unit) capsule buspirone 7.5 mg tablet 7.5 mg PO BID 03/10/23 Unknown History eogqkneyib-pzmvkgratzjfi-adkvnfjc 1 tab PO Q4H PRN PRN Headache 03/10/23 Unknown History 50 mg-325 mg-40 mg tablet fluoxetine 40 mg capsule 40 mg PO DAILY 03/10/23 Unknown History Allergy/AdvReac Type Severity Reaction Status Date / Time Sulfa (Sulfonamide Allergy Intermediate Nausea/Vom/ Verified 01/12/24 10:32 Antibiotics) Diarrhea tramadol (From Ultram) Allergy Intermediate Nausea/Vom/ Verified 01/12/24 10:32 Diarrhea Family History Grandmother Pancreatic cancer Other Blood clots Heart disease High cholesterol Hypertension Myocardial infarction Surgical History Hx of surgical procedure History of tonsillectomy and adenoidectomy History of History of hysterectomy History of tubal ligation Social History Smoking Status: Light Smoker (<10/day) alcohol intake: never substance use type: does not use caffeine: Yes Type: coffee Number of servings: 5 Review of Systems (Anesthesia) ROS Narrative System reviewed and no additional complaints, except as documented.
[2024-01-12] MEDS: Cefotetan 2 GM in 0.9% Normal Saline (100mL MB+) 100 ML IV (11:28)
--- NOTE | 2024-01-12 11:30 | GALL_PTH ---
PATIENT: DOMINGA CROWELL LOC: [facility] [place] U#:[id number] AGE/SX: 33/F ROOM: RE01/12/[address]: Dr. Laz Arellano MD : 1990 BED: DIS: 01/12/2024 SPEC #: [id number] RECD: 01/12/24 13:40 STATUS: ZARINA REEduarda #: [id number] JESSENIA: 01/12/24 11:[address]: Laz Arellano DEPT: SURGICAL PATHOLOGY RECD BY: Elicia Baker ENTERED: 01/13/24 07:38 SP TYPE: ALLIE KRAMER DR: Dr. Mariusz Wnislow DO Tissues: Gallbladder, NOS Procedures: Surgery Specimen Level III HEADER OPERATION: Laparoscopic cholecystectomy PRE-OP DIAGNOSIS: Abdominal pain TISSUE SUBMITTED: Gallbladder MICROSCOPIC DIAGNOSIS Gallbladder, cholecystectomy: Mild chronic cholecystitis. AM 01/14/2024 MICROSCOPIC DESCRIPTION Slides are reviewed. GROSS DESCRIPTION Received is one container labeled with the patient's name and designated gallbladder. The specimen consists of a gallbladder measuring 9.5 cm in length and up to 2.5 cm in diameter. The external surface is pink-rothman, smooth and glistening for the most part. Focally it is granular, hemorrhagic and contains cautery artifact. The gallbladder contains green-yellow mucoid bile. No stones are identified in the gallbladder or in the container. The mucosa is bile-stained and without any mass lesions. The gallbladder wall measures up to 0.1 cm in thickness. Compression Molding Machine Operator sections from the gallbladder and the cystic duct are submitted in one cassette. / SJ:mr 01/13/2024 TC:3 CPT: 71297
[2024-01-12] MEDS: Bupiv/Epi 0.25% 30 ML Vial (11:32)
--- NOTE | 2024-01-12 12:14 | PCM.POST.ANE ---
Anesthesia: Postop Eval I Current Vital Signs Temperature: 97 F Pulse Rate: 93 Blood Pressure: 133/73 Respiratory Rate: 16 Pulse Ox: 94 Oxygen Delivery Method: Room Air Assessment Airway patent: Yes Spontaneous unlabored respirations: Yes Mental status: Awake nausea: No Vomiting: No Anesthesia Complication: No Fluid Hydration Crystalloid volume administer (ml): 800 Total IV fluid infused: 800 Progress Note Anesthesia document: Postop Eval 1 completed: Yes
--- NOTE | 2024-01-12 12:15 | PCM.OPRPT ---
Operative Report (Standard) Operative Information Surgery/Procedure Performed: Laparoscopic cholecystectomy Surgeon: Laz Arellano Date of Procedure: 01/12/24 Procedure Start Time: 11:32 Procedure Stop Time: 12:03 Pre-Operative Diagnosis: Gallbladder sludge and epigastric pain Post-Operative Diagnosis: Same Select all DRAINS/GRAFTS/IMPLANTS that apply: None Type of Anesthesia: General/Regional Estimated Blood Loss: 5 Specimen collected: Yes Description of specimen(s) removed: Gallbladder Description of surgery: After obtaining informed consent patient was brought back to the operating room. General anesthesia was induced. The abdomen was prepped and draped in usual sterile fashion. A small midline incision was made superior to the umbilicus and deepened to the level of fascia. The fascia was elevated and incised. Next the peritoneum was elevated and incised in the same fashion. Finger sweep was performed and the Ponce trocar was placed into the abdomen. The balloon was inflated. The abdomen was inflated to 15 mmHg. Next a camera was introduced into the abdomen and the abdomen was inspected. Next under direct visualization three 5-mm ports were placed one subxiphoid and 2 subcostal. Next the gallbladder was elevated and retracted toward the right shoulder. The peritoneum was stripped from the gallbladder. The infundibulum was located and retracted laterally. Next the triangle of Calot was dissected and the cystic duct and cystic artery were identified. Cholangiograms were attempted but I was unable to aspirate and fill of the gallbladder as it was so thin-walled. There were 2 obvious structures only going to the gallbladder so the anatomy was not in question. Three hemolock clips were placed across the cystic duct. The cystic duct was then divided leaving 2 clips on the stump. The cystic artery was clipped and divided in the same fashion. The hook cautery was then used to take the gallbladder off of the gallbladder bed. Hemostasis was obtained. Gallbladder fossa was irrigated and no active bleeding or bile leakage was noted. Next the camera was introduced in the subxiphoid port. An Endopouch bag was placed through the umbilical port and the gallbladder was placed into it. The gallbladder was then removed through the umbilical incision. The camera was then reinserted through the umbilical port. The gallbladder fossa was inspected once more and noted to be hemostatic with no leaking bile. The abdomen was suctioned dry. The 5 mm ports were removed under direct visualization. The umbilical port was then removed and the air was removed from the abdomen. Next using an 0 Vicryl suture the umbilical fascia was closed in a ggtzmf-uq-[id number] fashion. The umbilical port site was irrigated local anesthetic was administered to all the incisions. All the incisions were closed with interrupted subcuticular 4-0 Monocryl sutures followed by Steri-Strips and dressings. The patient was awoken and taken to PACU in stable condition. Surgical Findings: none Panel Wirer utility appraiser: Yes Automobile Technician: Sara Adame Tasks completed by camp assistant: Opening, Closing and Retracting Complications Complications: No Admit VTE Documentation VTE Mechan Device Prophylaxis: SCD's
--- NOTE | 2024-01-12 12:19 | EX.PCM.DISCH ---
Discharge Instructions Procedure Gallbladder Diet Discharge Diet: Light diet - advance as tolerated Activity Discharge Activity: May Not Drive (for 2-3 days or while taking narcotic pain medications.) and - (Do not drive, work heavy equipment or sign legal documents for 24 hours.) May shower in (days): 1 Lifting Restrictions: 20 lbs for 2 weeks Additional Activity Instructions:: Pain medication may cause nausea. You should typically eat light foods as you take your pain medications. Pain medication may also cause constipation. If this is a problem for you, please discuss with your doctor. Ibuprofen and Tylenol alternating for pain, oxycodone for breakthrough pain. Dressing / Incision Call your doctor if your incision/area has: Continuous Slow Oozing, Sudden Increased Bleeding, Increased Pain/ Swelling, Increased Redness and Foul Smelling Discharge Call your doctor if you observe: Fever of 101 or Higher Suture Line Care: Avoid Pulling/Pushing and Avoid Pinching/Bending Remove Dressing in: 2 days Additional Dressing/Incision Instructions:: Leave operative bandaids on for 2 days. When you remove dressing, leave Steri-Strips on until your follow-up appointment, or until the Steri-Strips fall off on their own. Follow Up Care Please Follow Up With: Laz Arellano MD When: Please call to schedule 2 week follow up appointment. [phone] Test Results: Test results from this visit will be discussed in further detail at your follow-up appointment, if applicable. Discharge Plan Admission Attending Provider: Laz Arellano Primary Care Provider: Mariusz Winslow Instructions Print Language: [place] Island[place] Discharge Orders/Prescriptions Prescriptions: New oxycodone 5 mg Tablet 5 - 10 mg PO Q4H PRN PRN (Reason: Pain Score 4-10) 5 Days Qty: 20 0RF No Action rosuvastatin 10 mg tablet 10 mg PO DAILY Patient Comments: TAKE 1 TABLET BY MOUTH ONCE DAILY. vitamin E (dl, acetate) 180 mg (400 unit) capsule 200 mg PO DAILY buspirone 7.5 mg tablet 7.5 mg PO BID Patient Comments: TAKE 1 TABLET BY MOUTH TWICE DAILY fluoxetine 40 mg capsule 40 mg PO DAILY ukuppogrxt-vdkbctppuycfy-owli 50-325-40 mg tablet 1 tab PO Q4H PRN PRN (Reason: Headache) Referrals / Follow Up: Mariusz Winslow DO [Primary Care Provider] - Disposition Disposition (needs filled in before D/C Order can be placed): Home, Self Care
[2024-01-12] MEDS: Lactated Ringers 1,000 ML 1000 ML IV (12:44)
[2024-01-12] MEDS: oxyCODONE 5 MG Tablet PO (14:10)
--- NOTE | 2024-01-12 16:21 | POSTOPAN2_ITS ---
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 Spontaneous unlabored Yes 01/12/24 12:15 GATHERING WORKER.JDEF respirations Mental status Awake 01/12/24 12:15 GATHERING WORKER.JDEF nausea No 01/12/24 12:15 GATHERING WORKER.JDEF Vomiting No 01/12/24 12:15 GATHERING WORKER.JDEF Anesthesia Postop Eval I: Fluid Summary Crystalloid volume administer 800 01/12/24 12:15 GATHERING WORKER.JDEF (ml) Colloids volume administered ( ml) Blood Product volume administered (ml) Total IV fluid infused 800 01/12/24 12:15 GATHERING WORKER.JDEF Anesthesia Postop Eval I: Summary Notes Anesthesia Complication No 01/12/24 12:15 GATHERING WORKER.JDEF Anesthesia Complication Comment: Post-operative progress note Anesthesia: Postop Eval II Evaluation Mental status: Awake and Calm Pain Level: 1 nausea: No Vomiting: No Complications Anesthesia Complication: No
--- NOTE | 2024-01-12 16:21 | PCM.POSTANE2 ---
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 Spontaneous unlabored Yes 01/12/24 12:15 DEPARTMENT STORE DOOR GREETER.JDEF respirations Mental status Awake 01/12/24 12:15 DEPARTMENT STORE DOOR GREETER.JDEF nausea No 01/12/24 12:15 DEPARTMENT STORE DOOR GREETER.JDEF Vomiting No 01/12/24 12:15 DEPARTMENT STORE DOOR GREETER.JDEF Anesthesia Postop Eval I: Fluid Summary Crystalloid volume administer 800 01/12/24 12:15 DEPARTMENT STORE DOOR GREETER.JDEF (ml) Colloids volume administered ( ml) Blood Product volume administered (ml) Total IV fluid infused 800 01/12/24 12:15 DEPARTMENT STORE DOOR GREETER.JDEF Anesthesia Postop Eval I: Summary Notes Anesthesia Complication No 01/12/24 12:15 DEPARTMENT STORE DOOR 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
== END 2024-01-12 15:01 | disposition home or self-care (01) ==
LOC: SDC 09:58 → AC 09:59
PROVIDERS: PCP Family Medicine; Referring Provider Surgery; Visit Provider Surgery
PROC: (CPT 47610; principal; 2024-01-12 11:10)
DX: K81.1 Chronic cholecystitis (principal); F32.A Depression, unspecified; F41.9 Anxiety disorder, unspecified; E78.00 Pure hypercholesterolemia, unspecified; F17.200 Nicotine dependence, unspecified, uncomplicated; Z88.2 Allergy status to sulfonamides; Z79.899 Other long term (current) drug therapy
CPT/HCPCS: 47562; 00790; 88304; 93005; J7120; J2405